=== PATIENT | male | born 1965 | race Caucasian/White ===

== ENCOUNTER → 2017-04-04 | Day surgery (SDC) | payer OTHER ==
[~2017-04-04] MED LIST: APRISO0.375 GM PO; AZATHIOPRINE50 MG PO; BUMETANIDE2 MG PO; DICYCLOMINE HCL10 MG PO; FENTANYL CITRATE/PF 100MCG/2 ML INJ ONE; GLUCAGON FOR INJ 1 MG VIAL ONE; HUMIRA40 MG/0.8 INJ; HYOSCYAMINE SULFATE 0.5 MG/ML AMP ONE; LIDOCAINE HCL 2% LOCAL INJ 5 ML SDV VIAL INJ ONE; MIDAZOLAM HCL 2 MG/2 ML VIAL ONE; PANTOPRAZOLE SO40 MG PO; PROPOFOL IV EMULSION 10 MG/ML 50 ML VIAL ONE; VERAPAMIL ER180 MG PO
--- NOTE | 2017-04-04 09:28 | Operative Report ---
DATE OF PROCEDURE: April 04, 2017 REFERRING PHYSICIAN: Dr. Kodi Dyson. PROCEDURE PERFORMED: Colonoscopy, biopsies. INDICATIONS FOR PROCEDURE: Bloody diarrhea, history of ulcerative left-sided colitis. MEDICATION: Patient was done under MAC. Please see anesthesiologist's note. PROCEDURE: With patient in the left lateral decubitus position, the flexible fiberoptic Olympus colonoscope was inserted into the rectum with ease and advanced all the way to the cecum. Mucosa overlying the cecum appeared to be within normal limits. The ileocecal valve was intubated, and the scope was advanced into the terminal ileum. Biopsies were obtained. The scope was then withdrawn back into the colon. It was then withdrawn slowly. There were some patchy mild inflammatory changes noted in the ascending colon, and some scattered aphthous ulcers also were noted in the transverse colon and biopsies were obtained. The descending, sigmoid and rectum were diffusely and severely ulcerated, and biopsies were obtained. The scope was subsequently withdrawn, and an adequate stool specimen was secured and sent for the appropriate studies. Patient tolerated the procedure well. IMPRESSION: 1. Mild patchy colitis involving the ascending and the transverse colon, biopsies obtained. 2. Severe ulcerative colitis involving the descending and the sigmoid colon. 3. Severe ulcerative proctitis. 4. Apparent worsening of previously described colitis with some progression proximally. PLAN: Follow up histology. Follow up stool studies. Continue Humira 40 mg subcutaneous weekly. Patient has been started on Imuran and will escalate the dose after TPMT level is back. Will start Canasa suppositories 1000 mg nightly. Job#: [id number] EV cc:KODI DYSON MD
[2017-04-04 12:01] LABS: WBC,FECAL (FECAL LACTOFERRIN) POSITIVE (NEGATIVE)
[2017-04-04 15:16] LABS: C DIFFICILE TOXIN A&B AMP PROB NEGATIVE (NEGATIVE)
== END | disposition home or self-care (01) ==
LOC: OR 06:24
PROVIDERS: ATTEND Internal Medicine Gastroenterology
DX: K51.90 Ulcerative colitis, unspecified, without complications (principal); K51.20 Ulcerative (chronic) proctitis without complications; I10 Essential (primary) hypertension; Z01.810 Encounter for preprocedural cardiovascular examination
CPT/HCPCS: 45380; 83630; 83993; 87045; 87177; 87328; 87493; 93005; J1610; J1980; J2001; J2250